=== PATIENT | female | born 1970 | race Caucasian/White ===

== ENCOUNTER 2019-02-04 06:44 | Day surgery (SDC) | payer BC ==
[~2019-02-04] VITALS: Ht 156.2 cm; Wt 73.7 kg
[~2019-02-04 06:44] MED LIST: BROMFENAC SODIUM 1.7 ML OPH DROP OPER SCH; CYCLOPENTOLATE 2% 2 ML OPH OPER SCH; LACTATED RINGER'S 1,000 ML IV SCH; LIDOCAINE 3.5% GEL TUBE OPER ONE; MOXIFLOXACIN 0.5% 3 ML OPH OPER SCH; PHENYLephrine 10% 5 ML OPH OPER SCH; TETRACAINE 0.5% 4 ML OPH OPER SCH
[2019-02-04] MEDS: TROPICAMIDE 1% 15 ML OPH OPER SCH ×2 (08:04→09:24)
[2019-02-04 08:27] VITALS: Ht 156.2 cm; Wt 73.7 kg
[2019-02-04] MEDS ORDERED: LIDOCAINE 3.5% GEL TUBE OPER SCH (08:30)
--- NOTE | 2019-02-04 08:31 | PREAC ---
Date/Time of Note Date/Time of Note DATE: 02/04/19 TIME: 08:30 Anesthesia Eval and Record Evaluation Time Pre-Procedure Interview DATE: 02/04/19 TIME: 08:30 Age 48 Sex female NPO: 8 hrs Preoperative diagnosis right cataract Planned procedure Right CEIOL implant, poss anterior vitrectomy Past Medical History Past Medical History: None Surgery & Anesthesia Issues No known issue Meds Anticoagulation: No Beta Nubia within 24 hr: No Reason Beta Nubia not given: Pt. not on B-Nubia No Active Prescriptions or Reported Meds Current Medications Lactated Ringer's 1,000 ml @ 25 mls/hr Q24H IV Last administered on 02/04/19 08:02; Admin Dose 25 MLS/HR; Start 02/03/19 at 16:30 Cyclopentolate HCl (Cyclogyl 2% Oph) 1 drop Q5MIN X 3 OPER Last administered on 02/04/19 08:04; Admin Dose 1 DROP; Start 02/03/19 at 16:30 Bromfenac Sodium (Bromday) 1 drop Q5 MIN X3 OPER Last administered on 02/04/19 08:03; Admin Dose 1 DROP; Start 02/03/19 at 16:30 Phenylephrine HCl (Ak-Dilate 10%) 1 drop Q5MIN X 3 OPER Last administered on 02/04/19 08:03; Admin Dose 1 DROP; Start 02/03/19 at 16:30 Tropicamide (Mydriacyl 1%) 1 drop Q5MIN X 3 OPER Last administered on 02/04/19 08:04; Admin Dose 1 DROP; Start 02/03/19 at 16:30 Moxifloxacin HCl (Vigamox) 1 drop Q5MIN X 3 OPER Last administered on 02/04/19 08:04; Admin Dose 1 DROP; Start 02/03/19 at 16:30 Tetracaine HCl (Tetracaine 0.5% Steri-Unit Bettie) 1 drop Q5 MIN X3 OPER ; Start 02/03/19 at 16:30 Lidocaine HCl (Akten 3.5% Gel Drops) 1 applic ONCE OPER Last administered on 02/04/19 08:07; Admin Dose 1 APPLIC; Start 02/04/19 at 08:30; Stop 02/04/19 at 10:00 Meds reviewed: Yes Allergies Coded Allergies: morphine (Verified Adverse Reaction, Unknown, DIZZY VOMIT, 3/15/19) Allergies Reviewed: Yes Labs/Studies Labs Reviewed: Reviewed by anesthesiologist test: Negative Studies: ECG, CXR Pre-procedure Exam Airway: Adequate mouth opening, Adequate thyromental dist Mallampati: Mallampati II Teeth: Normal Lung: Normal Heart: Normal ASA Physical Status ASA physical status: 1 Emergency: None Planned Anesthetic General/MAC: MAC Planned Pain Management Parenteral pain med, Local by surgeon Pre-operative Attestations Prior to commencing anesthesia and surgery, the patient was re-evaluated, there was verification of: *The patient's identity *The results of appropriate recent lab work and preoperative vital signs *The above evaluation not changing prior to induction *Anesthetic plan, risk benefits, alternative and complications discussed with patient/family; questions answered; patient/family understands, accepts and wishes to proceed. ELICIA BEST Feb 04, 2019 08:31
[2019-02-04 08:38] VITALS: BP 118/68; RESP 16
--- NOTE | 2019-02-04 08:41 | HPN ---
Date/Time of Note Date/Time of Note DATE: 02/04/19 TIME: 08:41 Interval H&P Admission Note Pt. seen H&P reviewed: No system changes MOLLY REESE D.O. Feb 04, 2019 08:41
[2019-02-04] MEDS ORDERED: LIDOCAINE 1%/EPI (1:100,000) (MDV) 20 ML ONE ×2 (08:49→09:21)
[2019-02-04] MEDS ORDERED: EPINEPHrine 1 MG INJ ONE (08:49)
[2019-02-04] MEDS ORDERED: TETRACAINE 0.5% 4 ML OPH ONE (08:49)
[2019-02-04] MEDS ORDERED: NA HYALURONATE/CHONDROITIN 0.5 ML SYG ONE (08:50)
[2019-02-04] MEDS ORDERED: MIDAZOLAM 1 MG/ML 2 ML INJ ONE (09:12)
[2019-02-04] MEDS ORDERED: FENTAnyl 50 MCG/ML VIAL ONE (09:12)
[2019-02-04] MEDS ORDERED: LABETALOL HCL 20MG INJ IV PRN (09:30)
[2019-02-04] MEDS ORDERED: OXYCODONE/ACETAMINOPHEN (5/325) TAB PO PRN ×2 (09:30)
[2019-02-04] MEDS ORDERED: FENTAnyl 50 MCG/ML VIAL IV PRN ×3 (09:30)
[2019-02-04] MEDS ORDERED: ONDANSETRON 4 MG INJ IV PRN (09:30)
[2019-02-04 10:31] VITALS: BP 96/58; PULSE 72; RESP 13
--- NOTE | 2019-02-04 10:33 | PAC ---
Date/Time of Note Date/Time of Note DATE: 02/04/19 TIME: 10:32 Post-Anesthesia Notes Post-Anesthesia Note Last documented vital signs Vital Signs Date Temp Pulse Resp B/P (MAP) Pulse Ox O2 O2 Flow FiO2 Time Delivery Rate 02/04/19 98 75 18 120/65 100 1033 Activity: WNL Respiratory function: WNL Cardiovascular function: WNL Mental status: Baseline Pain reasonably controlled: Yes Hydration appropriate: Yes Nausea/Vomiting absent: Yes CHERELLE CAMARENA DO Feb 04, 2019 10:33
[2019-02-04 10:36] VITALS: BP 95/59; PULSE 72; RESP 13
[2019-02-04 10:41] VITALS: BP 92/52; PULSE 72; RESP 13
--- NOTE | 2019-02-04 10:53 | SIPON ---
Date/Time of Note Date/Time of Note DATE: 02/04/19 TIME: 10:51 Operative Report Preoperative Diagnosis Hypermature senile cataract, Rt eye Postoperative Diagnosis Hypermature senile cataract, Rt eye Operation/Procedure Performed Extracapsular cataract extraction with IOL implantation, Rt Eye. Surgeon see signature line expanded function dental assistant none Anesthesia: MAC Estimated blood loss: none Transfusion Required none Specimen none Grafts/Implants none Complications none MOLLY REESE D.O. Feb 04, 2019 10:53
[2019-02-04 12:07] VITALS: BP 95/53; PULSE 73; RESP 18
--- NOTE | 2019-02-05 21:46 | OPR ---
DATE OF OPERATION: SURGEON: Molly Aguirre DO ANESTHESIOLOGIST: Kyler Flores CRNA PREOPERATIVE DIAGNOSES: 1. Hypermature senile cataract, right eye. 2. Vitreous degeneration, right eye. POSTOPERATIVE DIAGNOSIS: Hypermature senile cataract, right eye. PROCEDURE PLANNED: Extracapsular cataract extraction with intraocular lens implantation and pars mendoza na anterior vitrectomy, right eye. PROCEDURE PERFORMED: Extracapsular cataract extraction with intraocular lens implantation, right eye . CONSENT: The procedure risks, benefits, alternatives, complications including bleeding, infection, l oss of vision, loss of the eye, damage of the iris, loss of the nucleus, retinal detachment, loss of the eye as an organ have been discussed with the patient. The patient understands that she has high risk of complication due to high level of maturity of her cataract. The patient signed the consent f orm and it is available in her medical chart. DESCRIPTION OF PROCEDURE: The patient was taken to the operating room in stable condition. Her face and right eye was prepped for cataract surgery in a routine sterile technique. The patient was plac ed on the operating room in supine position and additional Alcaine drops was instilled in the operati ve eye, as well as lidocaine 2% with epinephrine was injected in the temporal subconjunctival area. Then, cornea was then entered with a keratome and lidocaine 2% with epinephrine preservative-free was injected into the anterior chamber. It was followed by injection of air bubble and Trypan blue dye to stain the anterior capsule. After 1 to 2 minutes, this dye was removed via irrigation aspiration with balanced salt solution. Then, a large capsulorrhexis was performed and hydrodissection was done and nucleus was wheeled out of the posterior chamber into anterior chamber. Then, about 3.5 mm from the limbus temporally, conjunctival incision was done with scissor about 7.5 mm long, and Beav er knife was used to enter the anterior chamber. Then, loop and pressure from opposite side with mus tamika hook was used to extract the nucleus out of the anterior chamber. It was followed by irrigation aspiration with balanced salt solution, injection of additional Viscoat material and implantation of Satish posterior capsular lens, [id number], 21.0 diopters, lens rotated well. The wound was closed with 8 -0 Vicryl suture and conjunctiva also closed with 8-0 Vicryl suture. TobraDex ointment was instilled into the conjunctival sac and patch was placed over closed eyelid. The patient was moved to recover y room in stable condition. Dictated By: MOLLY HUIZAR/CR Conf#: [id number] DID#: [id number]
== END 2019-02-04 12:16 | disposition home or self-care (01) ==
LOC: SDS 06:44
PROVIDERS: ATTEND Ophthalmology
DX: H25.21 Age-related cataract, morgagnian type, right eye (principal)
CPT/HCPCS: 66984; 84703; J0171; J2250; J3010; V2632; Z7512; Z7610